=== PATIENT | female | born 1985 | race Caucasian/White ===

== ENCOUNTER 2016-12-19 22:52 | Emergency (ER) | payer OTHER ==
[~2016-12-19] VITALS: Ht 157.5 cm; Wt 58.0 kg
[2016-12-19 22:55] VITALS: BP 112/76; PULSE 76; RESP 18; TEMP 98.4; O2SAT 100
--- NOTE | 2016-12-19 23:17 | PD ---
HPI Chief Complaint: Complaint Time Seen by Provider: 23:02 Travel History International Travel<30 days: No Contact w/Intl Traveler<30days: No Traveled to known affect area: No History of Present Illness HPI 31-year-old female here for evaluation of hematuria and dysuria. Symptoms started a few hours prior to arrival. She has been using a vaginal cuff for her menstrual period which ended yesterday. She is and is in a monogamous relationship. She denies vaginal bleeding or discharge today. No fevers or chills. No flank pain. History of section and laparoscopic ovarian ablation. No other abdominal surgeries. She has slight suprapubic discomfort. PFSH Past Medical History ?: Not LMP: LAST WED Social History Tobacco Use: No Allergies-Medications (Allergen,Severity, Reaction): Coded Allergies: Codeine (Verified Adverse Reaction, Unknown, NAUSEA, 12/19/16) Reported Meds & Prescriptions Reported Meds & Active Scripts Active Pyridium (Phenazopyridine HCl) 100 Mg Tab 100 Mg PO Q8H PRN 5 Days Macrobid (Nitrofurantoin Monoh/Nitrofur Macro) 100 Mg Cap 100 Mg PO BID 5 Days Reported Vesicare (Solifenacin) 5 Mg Tab 5 Mg PO DAILY Synthroid (Levothyroxine Sodium) 100 Mcg Tab 100 Mcg PO DAILY Review of Systems Except as stated in HPI: all other systems reviewed are Neg Physical Exam Narrative GENERAL: Well-developed, well-nourished, comfortable, no acute distress. SKIN: Focused skin assessment warm/dry. HEAD: Atraumatic. Normocephalic. EYES: Pupils equal and round. No scleral icterus. No injection or drainage. ENT: Mucous membranes pink and moist. CARDIOVASCULAR: Regular rate and rhythm. RESPIRATORY: No accessory muscle use. Clear to auscultation. Breath sounds equal bilaterally. GASTROINTESTINAL: Abdomen soft, nondistended. Mild suprapubic tenderness without peritoneal signs. Rest of abdomen is soft and nontender. Normal bowel sounds. MUSCULOSKELETAL: No obvious deformities. No clubbing. No cyanosis. No edema. No CVA tenderness. NEUROLOGICAL: Awake and alert. No obvious cranial nerve deficits. Motor grossly within normal limits. Normal speech. PSYCHIATRIC: Appropriate mood and affect; insight and judgment normal. Data Data Last Documented VS Vital Signs Date Time Temp Pulse Resp B/P Pulse Ox O2 Delivery O2 Flow Rate FiO2 6/10/17 23:55 74 18 114/72 99 Room Air 12/19/16 22:55 98.4 Orders Urinalysis - C+S If Indicated (12/19/16 23:02) Ed Urine Pregnancytest Poc (12/19/16 23:02) Urine Culture (12/19/16 23:00) Nitrofurantoin Monohyd Macrocr (Macrobid (12/19/16 23:45) Phenazopyridine (Pyridium) (12/19/16 23:45) Labs Laboratory Tests Test 12/19/16 23:00 Urine Color YELLOW Urine Turbidity CLOUDY Urine pH 6.0 Urine Specific [place] 1.017 Urine Protein TRACE mg/dL Urine Glucose (UA) NEG mg/dL Urine Ketones NEG mg/dL Urine Occult Blood LARGE Urine Nitrite POS Urine Bilirubin NEG Urine Leukocyte Esterase LARGE Urine RBC 50-99 /hpf Urine WBC 50-99 /hpf Urine Squamous Epithelial 0-5 /hpf Cells Urine Bacteria FEW /hpf Microscopic Urinalysis Comment CULTURE INDICATED MDM Medical Decision Making Medical Screen Exam Complete: Yes Emergency Medical Condition: Yes Differential Diagnosis UTI, cystitis, nephrolithiasis, appendicitis less likely Narrative Course Vital signs show heart rate 76, blood pressure 112/76, pulse ox 100% on room air , oral temp of 98.4F. UA: Cloudy, large occult blood, positive nitrites, large leukocyte esterase, 50-99 RBCs, 50-99 wbc's, few bacteria, culture indicated. Urine is negative. Patient was made aware of UA findings. Her abdominal exam shows mild suprapubic tenderness which is likely from cystitis. I do not believe that there is an acute intra-abdominal surgical process to warrant imaging at this time. I will start her on Macrobid and Pyridium. PMD follow-up this week. Patient informed on when to return to the emergency department. She verbalizes understanding and agreement with plan. Diagnosis Primary Impression: UTI (urinary tract infection) Qualified Code: N30.01 - Acute cystitis with hematuria Referrals: Primary Care Physician 1 week Additional Instructions: Take medications as prescribed. Follow-up with your primary care physician this week. Return to the emergency department for worsening symptoms or any other concerns. Scripts Phenazopyridine (Pyridium)100 Mg [id number] Mg PO Q8H PRN (DYSURIA) 5 Days Ref 0 Prov:Salvatore Walker MD 12/19/16 Nitrofurantoin Monohydrate Macrocrystals (Macrobid)100 Mg [id number] Mg PO BID 5 Days Ref 0 Prov:Salvatore Walker MD 12/19/16 Disposition: 01 DISCHARGE HOME Condition: Stable Salvatore Walker MD Dec 19, 2016 23:16
[2016-12-19] MEDS ORDERED: VESI5TAB PO (23:24)
[2016-12-19] MEDS ORDERED: LEVO.1 PO (23:24)
[2016-12-19 23:28] LABS: BLOOD, URINE LARGE (NEG); GLUCOSE,URINE NEG (NEG); KETONE, URINE NEG (NEG)
[2016-12-19 23:30] LABS: NITRITE,URINE POS (NEG)
[2016-12-19 23:33] LABS: URINE COLOR YELLOW (YELLW/STRAW)
[2016-12-19 23:34] LABS: SQUAMOUS EPITHELIAL CELL URINE 0-5 /hpf (0-5)
[2016-12-19 23:35] LABS: BACTERIA, URINE FEW /hpf; COMMENT (UR) CULTURE INDICATED; CULTURE IF INDICATED CULTURE INDICATED
[2016-12-19] MEDS ORDERED: NITROFURANTOIN MONOHYD MACROCR 100 MG CAP PO ONE (23:45)
[2016-12-19] MEDS ORDERED: PHENAZOPYRIDINE HCL 100 MG TAB PO ONE (23:45)
[2016-12-19] MEDS ORDERED: PHEN0.4T PO (23:46)
[2016-12-19] MEDS ORDERED: MACR100C2 PO (23:46)
[2016-12-19 23:55] VITALS: BP 114/72; PULSE 74; RESP 18; O2SAT 99
== END 2016-12-20 00:07 | disposition home or self-care (01) ==
LOC: PHED 22:52
DX: N30.01 Acute cystitis with hematuria (principal); B96.20 Unspecified Escherichia coli [E. coli] as the cause of diseases classified elsewhere
CPT/HCPCS: 81001; 84703; 87077; 87086; 87186; 99284